=== PATIENT | male | born 1990 | race Caucasian/White ===

== ENCOUNTER 2021-07-16 14:04 | Emergency (ER) | payer OTHER ==
[~2021-07-16] VITALS: Ht 190.5 cm; Wt 131.5 kg
[~2021-07-16 14:04] MED LIST: FLAGYL500 MG PO
[2021-07-16 15:50] LABS: URINE BILIRUBIN NEGATIVE (Negative); URINE BLOOD NEGATIVE (Negative); URINE CLARITY CLEAR; URINE COLOR YELLOW; URINE GLUCOSE-RANDOM NEGATIVE (Negative); URINE KETONES TRACE (Negative); URINE LEUKOCYTES-REFLEX NEGATIVE (Negative); URINE NITRITE-REFLEX NEGATIVE (Negative); URINE PROTEIN NEGATIVE (Negative)
[2021-07-16 15:53] LABS: MCH 28.3 pg (26.0-34.0); MCHC 34.8 g/dL (28.0-37.0); MCV 81.3 fL (80.0-100.0); MPV 7.9 fl. (7.2-11.1); NUCLEATED RBCS 0 /100WBC; PLATELET COUNT* 209 thou/uL (150-400); RBC 5.66 mil/uL (4.50-6.00); RDW-CV 13.9 % (10.5-14.5); WBC 12.7 thou/uL (4.0-11.0)
[2021-07-16 16:09] LABS: CALCIUM 9.1 mg/dL (8.5-10.1); CREATININE 1.1 mg/dL (0.6-1.3); POTASSIUM 4.1 mmol/L (3.5-5.1)
[2021-07-16 16:13] LABS: ALBUMIN 4.5 g/dL (3.4-5.0); TOTAL BILIRUBIN 0.5 mg/dL (<0.1-1.0); TOTAL PROTEIN 7.7 g/dL (6.4-8.2)
[2021-07-16 16:15] LABS: ABSOLUTE LYMPHOCYTES 0.9 thou/uL (0.8-5.3); ABSOLUTE MONOCYTES 0.1 thou/uL (0.0-1.2); ABSOLUTE NEUTROPHILS 11.7 thou/uL (1.6-8.1)
[2021-07-16 16:16] LABS: PLATELET ESTIMATE ADEQUATE
[2021-07-16] MEDS ORDERED: ZOFRAN ODT4 MG DISSOLVE (17:22)
[2021-07-16] MEDS ORDERED: FLOMAX0.4 MG PO (17:22)
[2021-07-16] MEDS ORDERED: IBUPROFEN 800800 M1 PO (17:22)
[2021-07-16] MEDS ORDERED: HYDROCODON-ACE1 EAC7 PO (17:22)
[2021-07-16 18:25] VITALS: BP 137/86
== END 2021-07-16 18:25 | disposition home or self-care (01) ==
LOC: M.ERS 14:04
PROVIDERS: Emergency Medicine Emergency Medical Services
DX: N20.0 Calculus of kidney (principal)